=== PATIENT | female | born 1955 | race Hispanic/Latino ===

== ENCOUNTER 2017-10-08 23:05 | Inpatient (IN) | payer OTHER, SELFPAY ==
[2017-10-08] MEDS ORDERED: Atropine Sulfate 1 mg/10 ml Syringe ONE (23:33)
[2017-10-09 00:50] LABS: CKMB 0.8 ng/mL (0-6.6); Troponin I Less than 0.010 ng/mL (< 0.028)
[2017-10-09 01:42] VITALS: BMI 24.7
[2017-10-09 03:37] LABS: Troponin I 0.013 ng/mL (< 0.028)
[2017-10-09] MEDS ORDERED: Senokot 8.6 MG TAB PO PRN (06:45)
[2017-10-09] MEDS ORDERED: Mag-Al 1200 mg/1200 mg/30 ML UDCUP PO PRN (06:45)
[2017-10-09] MEDS ORDERED: Loperamide HCl 2 MG CAP PO PRN (06:45)
[2017-10-09] MEDS ORDERED: Ondansetron HCl/PF 4 MG/2 ML Vial IVP PRN (06:45)
[2017-10-09] MEDS ORDERED: Chloraseptic Spray 180 ml Bottle PO PRN (06:45)
[2017-10-09] MEDS ORDERED: Milk Of Magnesia 30 ML UDCUP PO PRN (06:45)
[2017-10-09] MEDS ORDERED: Artificial Tears 18 DROP/0.9 ML EA EYE PRN (06:45)
[2017-10-09] MEDS ORDERED: Diabetic Tussin 200 MG/10 ML UDCUP PO PRN (06:45)
[2017-10-09] MEDS ORDERED: Nitroglycerin 0.4 MG TAB (25 Tab Bottle) SL PRN (06:45)
[2017-10-09] MEDS ORDERED: Sodium Chloride 0.65% Nasal 44 ML BOT EA NARE PRN (06:45)
[2017-10-09] MEDS ORDERED: Ondansetron ODT 4 MG TAB PO PRN (06:45)
[2017-10-09] MEDS ORDERED: Eucerin (Mineral Oil/Petrolatum,White) 30 gm Jar TOP PRN (06:45)
[2017-10-09] MEDS ORDERED: Loratadine 10 MG TAB PO PRN (06:45)
[2017-10-09] MEDS ORDERED: hydrALAZINE 20 MG/ML VIAL SLOW IVP PRN (06:45)
[2017-10-09] MEDS ORDERED: Zolpidem Tartrate 5 MG TAB PO PRN (06:45)
[2017-10-09 07:16] LABS: Troponin I 0.022 ng/mL (< 0.028)
[2017-10-09 07:18] LABS: #Eosinphils 0.2 thou/uL (0.0-0.7); #Lymphocytes 2.4 thou/uL (1.20-3.40); #Monocytes 0.5 thou/uL (0.11-0.59); #Neutrophils 4.4 thou/uL (1.40-6.50); %Basophils 0.6 % (0.0-1.0); %Eosinophils 3.1 % (0.0-10.0); %Lymphocytes 31.4 % (21.0-51.0); %Monocytes 6.7 % (0.0-10.0); %Neutrophils 58.1 % (42.0-75.0); Mean Corpuscular HGB CONC 31.7 g/dL (32.0-36.0); Mean Corpuscular Hemoglobin 26.1 pg (27.0-31.0); Mean Corpuscular Volume 82.4 fL (78.0-98.0); Mean Platelet Volume 9.4 fL (7.4-10.4); Platelet Count 221 thou/uL (130-400); RBC Distribution Width 13.5 % (11.5-14.5); White Blood Cell (WBC) Count 7.6 thou/uL (4.8-10.8)
[2017-10-09 07:42] LABS: ALT (SGPT) 13 U/L (8-55); AST (SGOT) 16 U/L (5-34); Albumin 3.8 g/dL (3.4-4.8); Alkaline Phosphatase 62 U/L (40-150); Anion Gap 12 mmol/L (10-20); BUN (Urea Nitrogen) 14 mg/dL (9.8-20.1); Bilirubin, Total 0.5 mg/dL (0.2-1.2); Calc. Creatinine Clearance 73 mL/min (70-130); Calcium 8.9 mg/dL (7.8-10.44); Carbon Dioxide 24 mmol/L (23-31); Cardiac Risk 2.8 (Less than 4.5); Chloride 110 mmol/L (98-107); Cholesterol 205 mg/dl (< 200 Desired); Estimated GFR-MDRD 78; Globulin 2.7 g/dL (2.4-3.5); Glucose 101 mg/dL (80-115); HDL Cholesterol 74 mg/dL (>60 Neg Risk); LDL Cholesterol, Calculated 118 mg/dL; Potassium 3.4 mmol/L (3.5-5.1); Protein, Total 6.5 g/dL (6.0-8.3); Sodium 143 mmol/L (136-145); Triglycerides 65 mg/dL (Less than 150)
[2017-10-09] MEDS: Losartan 25 MG TAB PO SCH (08:45)
[2017-10-09] MEDS ORDERED: Potassium Chloride 20 MEQ in Premix Bag 1 BAG IVPB SCH ×2 (08:45→10:15)
[2017-10-09] MEDS: Enoxaparin Sodium 40 MG/0.4 ML SYRINGE SC SCH (08:45)
[2017-10-09] MEDS: traZODone HCl 50 MG TAB PO SCH ×2 (08:46→20:10)
[2017-10-09] MEDS: Famotidine 20 MG TAB PO SCH ×2 (08:46→20:11)
[2017-10-09] MEDS ORDERED: Regadenoson 0.4 MG/5 ML SYRINGE ONE (10:39)
[2017-10-09] MEDS ORDERED: Albuterol Sulfate 2.5 mg/3 ml Neb NEB PRN (10:54)
--- NOTE | 2017-10-09 11:47 | HP ---
PRIMARY CARE PHYSICIAN: Obdulio Almodovar [employer] in [place]. REASON FOR ADMISSION: Dizziness/symptomatic bradycardia. HISTORY OF PRESENT ILLNESS: A 62-year-old female with a history of hypertension and asthma, who initially went to [facility] Emergency Room with a complaint of dizziness. The mai ent reports that she feels intermittently dizzy, which last for seconds and subsides by itself. The patient was experiencing dizziness more frequently yesterday. She had one episode at work, she felt as if she is going to pass out, but she did not completely pass out. She was having headache. Per p atient, she was also having some throbbing pain in her left side of the neck when it started, but she did not notice any change with position or associated palpitations or shortness of breath. She shon es any associated confusion, chest pain, and generalized weakness. Subsequently, patient went to -[facility] where she again felt similar dizziness as if she is going to pass out and that is what she was concerned about and decided to go to local emergency room for evaluatio n. The patient was found with bradycardia and for that reason, the patient was sent to our emergency room for evaluation. When she came to our emergency room, her pulse was running in 44. Otherwise, she was hypertensive. She denies any symptoms relation with position changes. She denies any exertion related dizziness, s hortness of breath, chest pain, palpitation. She is not taking any beta sherry medication. She den ies any UTI symptoms. She denies any constipation, diarrhea, melena or hematochezia. She denies any vasovagal type of reaction. REVIEW OF SYSTEMS: The following complete review of systems was negative, unless otherwise mentioned in the HPI or below: Constitutional: Weight loss or gain, ability to conduct usual activities. Skin: Rash, itching. Eyes: Double vision, pain. ENT/Mouth: Nose bleeding, neck stiffness, pain, tenderness. Cardiovascular: Palpitations, dyspnea on exertion, orthopnea. Respiratory: Shortness of breath, wheezing, cough, hemoptysis, fever or night sweats. Gastrointestinal: Poor appetite, abdominal pain, heartburn, nausea, vomiting, constipation, or diarr hea. Genitourinary: Urgency, frequency, dysuria, nocturia. Musculoskeletal: Pain, swelling. Neurologic/Psychiatric: Anxiety, depression. Allergy/Immunologic: Skin rash, bleeding tendency. Please see my HPI for pertinent positive and negative. All other review of system reviewed and negat sage except as mentioned in the HPI. PAST MEDICAL HISTORY: Hypertension, hypothyroidism, asthma. PAST SURGICAL HISTORY: Hysterectomy, left arm surgery with screws. PAST PSYCHIATRIC HISTORY: Anxiety and depression. SOCIAL HISTORY: Patient is single. She denies any tobacco, alcohol, or illicit drug abuse. FAMILY HISTORY: No strong family history of premature coronary artery disease, stroke or cancer. ALLERGIES: CODEINE SULFATE. CURRENT HOME MEDICATIONS: Hydralazine 50 mg q.8 hourly, Synthroid 88 mcg p.o. daily, Cozaar 50 mg p. o. daily, Singulair 10 mg p.o. daily, Zoloft 100 mg p.o. daily, trazodone 100 mg p.o. at bedtime and 50 mg in the morning. EMERGENCY ROOM COURSE: The patient was given atropine 0.5 mg in our emergency room PHYSICAL EXAMINATION: VITAL SIGNS: On arrival, blood pressure 212/98 subsequently improved to 164/88, pulse 44, respirator y rate 18, temperature 98.4, saturation 96% on room air, weight 61.2 kilograms. GENERAL: Patient is currently alert, awake, no obvious acute distress, bradycardic. HEENT: Head: Normocephalic, atraumatic. Eyes: Pupils round, reactive to light. Extraocular muscl e intact. ENT: Oropharynx within normal limits. Moist mucous membranes. No oral lesion, no pharyn geal erythema, no exudate. NECK: Supple, no JVD, no thyromegaly, no carotid bruit, no jugular venous distention. LUNGS: Clear to auscultation without any rhonchi or rales. CARDIAC: S1 and S2 regular. No murmur, no gallop, rub. ABDOMEN: Soft, bowel sounds present, nontender, nondistended. No organomegaly, no mass, no suprapub ic tenderness. BACK: Unremarkable, no CVA tenderness. EXTREMITIES: Upper extremity passive movement of all joints are normal. Lower extremities: No latrice a. Good peripheral pulsation. SKIN: No skin rash. HEMATOLOGIC: No lymphadenopathy. PSYCHIATRIC: Normal affect. NEUROLOGIC: Patient is currently alert, oriented x3. Cranial nerves II-XII intact. Motor and sensa tion within normal limits. No cerebellar sign. Plantar bilateral flexor. PSYCHIATRIC: Normal affect. IMAGING DATA: EKG showing sinus bradycardia, premature atrial complexes. The patient had CT soft ti ssue neck that was normal. CT brain was done at [place] [facility], which was also normal. Ches t x-ray is also done at [facility], which is also normal without any acute proc ess. SIGNIFICANT LABORATORY DATA: Blood tests done at [facility] also reviewed as well as we ordered a blood test here in our hospital too. CBC: WBC 8.5, hemoglobin 12.6, platelet 293. BMP: Sodium 142, potassium 3.5, chloride 108, carbon dioxide 24, calcium 9.2, creatinine 0.88, alkaline p hosphatase 68, AST 11, ALT 8, protein 7.3, albumin 4.3, lipase 13. Troponin negative. INR 1.0. In our emergency room, blood tests done. CBC normal. BMP normal other than hypokalemia. Potassium 3.4 and LFT normal. Cardiac enzymes already negative x3 and TSH 4.99, LDL 118. ASSESSMENT AND PLAN: 1. Dizziness, near syncope, likely related with symptomatic bradycardia. The patient has paroxysmal symptoms, it has no relation with position, so does not suspect any benign positional vertigo, does not suspect any vasovagal syncope. Currently her presentation with bradycardia can be explained toge ther. At this point, Cardiology consulted. Cardiology will decide about any further investigation a nd evaluate for pacemaker. We will obtain echocardiography to assess ejection fraction and other str uctural abnormality. TSH checked and it is reasonably well controlled, but we will need to increase the Synthroid 200 mcg p.o. daily to better control hypothyroidism. 2. Hypokalemia. Potassium will be given IV one time dose and we will repeat BMP tomorrow. 3. Hypertension with hypertensive urgency. We will continue Cozaar 50 mg p.o. daily, hydralazine 50 mg q.8 hourly. We will avoid any beta blockers because of her low pulse rate. 4. Asthma. We will continue Singulair 10 mg p.o. daily. We will use albuterol nebulization p.r.n. basis. 5. Anxiety and depression. We will continue Zoloft 100 mg p.o. daily and trazodone 150 mg in the mo rning and 100 mg at bedtime. 6. Deep venous thrombosis prophylaxis, Lovenox 40 mg subcu daily. 7. Gastrointestinal prophylaxis, Pepcid 20 mg p.o. b.i.d. 8. Code status: The patient is FULL CODE. Patient does not have any surrogate decision maker. She is making her decision by herself. Disposition plan based on clinical course, likely 24-48 hours depending upon clinical course, she may need more if her pulse does not improve.
--- NOTE | 2017-10-09 14:04 | CON ---
DATE OF CONSULTATION: 10/09/2017. REASON FOR CONSULTATION: Bradycardia, dizziness, lightheadedness, near syncope. HISTORY OF PRESENT ILLNESS: Ms. Faye Levy is a very pleasant 62-year-old woman. The patient w as shopping yesterday when she began to feel extremely lightheaded that came on suddenly. She had to sit down quickly. She later had a recurrence of the same symptoms. She did not faint, but felt lik e she was coming close. She did not have chest pain or pressure. She has been brought here. She was found to have severe br adycardia. PAST MEDICAL HISTORY: Negative for any cardiac problems. She did come to the emergency room a coupl e of years ago, apparently with some palpitations, but no significant findings at that time. Otherwise, she has been relatively active and healthy. PAST MEDICAL HISTORY: Hypertension. MEDICATIONS: The outpatient medicines which are listed were hydralazine and levothyroxine. The patient was hypertensive initially. Her initial blood pressure was also recorded as very high . The pulse is 44 at that time. FAMILY HISTORY: Negative for heart disease at a young age. SOCIAL HISTORY: No alcohol or tobacco abuse. REVIEW OF SYSTEMS: Constitutional: No significant weight gain or loss. Vision: No changes. Heari ng: No changes. Pulmonary: No cough or wheezing. Gastrointestinal: No nausea, vomiting, diarrhea . Neurologic: No unilateral weakness or numbness. Psychiatric: No unusual depression or anxiety. Hematologic: No unusual bruising. Skin: No unusua l bruising. No rashes. PHYSICAL EXAMINATION: GENERAL: This is a pleasant 62-year-old woman, looks younger than chronologic age. VITAL SIGNS: Blood pressure now is improved to 151/78, pulse 42. Earlier, the blood pressure was ex tremely high over 200 systolic. HEENT: Eyes, sclerae nonicteric. Mouth mucous membranes moist. NECK: Supple, no lymphadenopathy. LUNGS: Clear, no wheezing, rales or rhonchi. CARDIAC: Normal S1, normal S2. There is no murmur, rub or gallop. ABDOMEN: Soft, nontender, no hepatosplenomegaly. EXTREMITIES: Warm, dry, no clubbing or cyanosis. There is no edema. HEMATOLOGIC: No unusual bruising. PSYCHIATRIC: Mood and affect normal. SKIN: Warm and dry. PERTINENT LABORATORY DATA: Potassium is 3.4. TSH is 4.9966. Cholesterol is 205. LDL is 118. IMAGING: Echocardiogram is being done now. EKG showed marked sinus bradycardia at rate of 46 with s ome premature atrial contractions. There showed her heart rates of as low as 39 at 7 a.m. this morni ng. ASSESSMENT: 1. Symptomatic sinus bradycardia. 2. History of hypertension. 3. History of hypothyroidism. TSH is just borderline high. PLAN: 1. We would go ahead and increase the thyroid dose to 100 mcg. 2. I will review echocardiogram. 3. Stress testing to look for any evidence of ischemia. 4. If no evidence of any ischemia and echo was within normal limits, we will likely need pacemaker i nsertion. Discussed risks including bleeding, infection, .
--- NOTE | 2017-10-09 15:32 | NM ---
MYOCARDIAL PERFUSION EVALUATION 10/09/17 Lexiscan stress test protocol. HISTORY: Sinus bradycardia. RADIOPHARMACEUTICAL: 29.5 millicuries technetium 99m Sestamibi IV with stress and 9.1 millicuries technetium 99m Sestamibi with rest. FINDINGS: No reversible myocardial perfusion defect is evident when comparing the rest and stress images. There is normal wall motion and thickening. Estimated LVEF is 89%. IMPRESSION: No scintigraphic evidence of reversible myocardial ischemia. POS: MYRON
[2017-10-09 17:00] LABS: Bilirubin Negative (Negative); Blood, Urine Negative (Negative); Clarity CLEAR (Clear); Glucose, Urine (Dipstick) Negative (Negative); Leukocyte Trace (Negative); Nitrite Negative (Negative); Protein, Urine (Dipstick) Negative (Neg-Trace); Specific Gravity, Urine 1.009 (1.002-1.036); Urobilinogen 0.2 mg/dL (0.2-1.0)
[2017-10-09 17:04] LABS: Bacteria/HPF None Seen HPF (None Seen); Hyaline Casts/LPF 0-3 HYALINE CAST LPF (0-3 Hyaline); RBC/HPF 0-3 HPF (0-3); Squamous Epithelial None Seen HPF (0-3); WBC/HPF None Seen HPF (0-3)
[2017-10-09] MEDS: Montelukast Sodium 10 mg Tablet PO SCH (20:10)
[2017-10-10] MEDS: Levothyroxine Sodium 100 MCG TAB PO SCH (05:08)
[2017-10-10] MEDS ORDERED: Levothyroxine Sodium 88 MCG TAB PO SCH (06:00)
--- NOTE | 2017-10-10 07:37 | PDOC.PN ---
- Subjective Encounter Start Date: 10/11/17 Encounter Start Time: 07:30 Patient seen and examined. No new complaints. No overnight events - Objective Resuscitation Status: Resuscitation Status FULL:Full Resuscitation MAR Reviewed: Yes Vital Signs & Weight: Vital Signs (12 hours) Temp Pulse Resp BP BP Pulse Ox 10/10/17 03:43 98.3 F 53 L 15 165/78 H 95 10/09/17 23:19 98.2 F 53 L 15 160/71 H 95 10/09/17 20:00 97.7 F 51 L 18 128/70 95 Weight Weight 139 lb I&O: 10/09/17 10/10/17 10/11/17 06:59 06:59 06:59 Intake Total 120 480 Output Total 400 Balance -280 480 Result Diagrams: 10/09/17 06:09 10/11/17 03:50 EKG Reviewed by me: Yes (sinus bradycardia) Phys Exam - Physical Examination Constitutional: NAD HEENT: PERRLA, moist MMs, sclera anicteric Neck: no JVD, supple Respiratory: no wheezing, no rales, no rhonchi Cardiovascular: RRR, no significant murmur, no rub Gastrointestinal: soft, non-tender, no distention, positive bowel sounds Musculoskeletal: no edema, pulses present Neurological: non-focal, normal sensation, moves all 4 limbs Psychiatric: normal affect, A&O x 3 Skin: no rash, normal turgor Dx/Plan (1) Dizziness Code(s): R42 - DIZZINESS AND GIDDINESS Status: Acute (2) Hypokalemia Code(s): E87.6 - HYPOKALEMIA Status: Acute (3) Symptomatic sinus bradycardia Code(s): R00.1 - BRADYCARDIA, UNSPECIFIED Status: Acute (4) Asthma Code(s): J45.909 - UNSPECIFIED ASTHMA, UNCOMPLICATED Status: Chronic (5) Hypertension Code(s): I10 - ESSENTIAL (PRIMARY) HYPERTENSION Status: Chronic (6) Hypothyroidism Code(s): E03.9 - HYPOTHYROIDISM, UNSPECIFIED Status: Chronic - Plan cont current plan of care * plan for pacemaker on wednesday * medication reviewed as below * symptomatic treatment * discussed with family * answered all question about pacemaker. * BP meds losartan increased * syntrhoid increased Review of Systems - Review of Systems Constitutional: negative: fever, chills, sweats, weakness, malaise, other ENT: negative: Ear Pain, Ear Discharge, Nose Pain, Nose Discharge, Nose Congestion, Mouth Pain, Mouth Swelling, Throat Pain, Throat Swelling, Other Respiratory: negative: Cough, Dry, Shortness of Breath, Hemoptysis, SOB with Excertion, Pleuritic Pain, Sputum, Wheezing Cardiovascular: negative: chest pain, palpitations, orthopnea, paroxysmal nocturnal dyspnea, edema, light headedness, other Gastrointestinal: negative: Nausea, Vomiting, Abdominal Pain, Diarrhea, Constipation, Melena, Hematochezia, Other Genitourinary: negative: Dysuria, Frequency, Incontinence, Hematuria, Retention , Other Musculoskeletal: negative: Neck Pain, Shoulder Pain, Arm Pain, Back Pain, Hand Pain, Leg Pain, Foot Pain, Other Skin: negative: Rash, Lesions, Simon, Bruising, Other - Medications/Allergies Allergies/Adverse Reactions: Allergies Allergy/AdvReac Type Severity Reaction Status Date / Time codeine Allergy Verified 10/09/17 02:29 Medications: Current Medications Acetaminophen (Tylenol) 650 mg PO Q4H PRN PRN Reason: Headache/Fever or Pain Al Hydroxide/Mg Hydroxide (Maalox) 30 ml PO Q6H PRN PRN Reason: Heartburn or Indigestion Albuterol Sulfate (Ventolin) 2.5 mg NEB [id number] PRN PRN Reason: Wheezing Artificial Tears (Tears Naturale) 0 drop EA EYE PRN PRN PRN Reason: Dry Eyes Enoxaparin Sodium (Lovenox) 40 mg SC 0900 [facility] Last Admin: 10/09/17 08:45 Dose: 40 mg Famotidine (Pepcid) 20 mg PO BID [facility] Last Admin: 10/09/17 20:11 Dose: 20 mg Guaifenesin (Robitussin Sf) 200 mg PO Q4H PRN PRN Reason: Cough Hydralazine HCl (Apresoline) 10 mg SLOW IVP Q4H PRN PRN Reason: Systolic BP > 180 Levothyroxine Sodium (Synthroid) 100 mcg PO 0600 [facility] Last Admin: 10/10/17 05:08 Dose: 100 mcg Loperamide HCl (Imodium) 2 mg PO PRN PRN PRN Reason: Diarrhea/Loose Stools Loratadine (Claritin) 10 mg PO DAILYPRN PRN PRN Reason: Sinus Symptoms Losartan Potassium (Cozaar) 50 mg PO DAILY [facility] Last Admin: 10/09/17 08:45 Dose: 50 mg Magnesium Hydroxide (Milk Of Magnesium) 30 ml PO DAILYPRN PRN PRN Reason: Constipation Mineral Oil/White Petrolatum (Eucerin Cream) 0 gm TOP BIDPRN PRN PRN Reason: Dry Skin Montelukast Sodium (Singulair) 10 mg PO [facility] Last Admin: 10/09/17 20:10 Dose: 10 mg Nitroglycerin (Nitrostat) 0.4 mg SL Q5MIN PRN PRN Reason: Chest Pain Ondansetron HCl (Zofran Odt) 4 mg PO Q6H PRN PRN Reason: Nausea/Vomiting Ondansetron HCl (Zofran) 4 mg IVP Q6H PRN PRN Reason: Nausea/Vomiting Phenol (Chloraseptic [place] 180 Ml Bot) 0 ml PO PRN PRN PRN Reason: Sore Throat Senna (Senokot) 2 tab PO HSPRN PRN PRN Reason: Constipation Sertraline HCl (Zoloft) 100 mg PO DAILY [facility] Last Admin: 10/09/17 08:46 Dose: 100 mg Sodium Chloride (Rachel Nasal [place] 0.65%) 0 ml EA NARE QIDPRN PRN PRN Reason: Nasal Congestion Trazodone HCl (Desyrel) 50 mg PO [facility] Last Admin: 10/09/17 08:46 Dose: 50 mg Trazodone HCl (Desyrel) 100 mg PO [facility] Last Admin: 10/09/17 20:10 Dose: 100 mg Zolpidem Tartrate (Ambien) 5 mg PO HSPRN PRN PRN Reason: Insomnia
[2017-10-10] MEDS: Losartan 25 MG TAB PO SCH (08:37)
[2017-10-10] MEDS: traZODone HCl 50 MG TAB PO SCH ×2 (08:41→21:44)
[2017-10-10] MEDS: Enoxaparin Sodium 40 MG/0.4 ML SYRINGE SC SCH (08:41)
[2017-10-10] MEDS: Famotidine 20 MG TAB PO SCH ×2 (08:41→21:45)
--- NOTE | 2017-10-10 09:10 | PDOC.CTH ---
Cardiology Progress Note - Subjective Resting, awakens easily. Feels good, did not get much sleep last night. Denies chest pain, lightheadedness/dizziness, or shortness of breath. No overnight cardiac events, surveillance system monitor shows persistent bradycardia, HR as low as 39. No recurrence of syncope. - Objective Vital Signs Temp Pulse Resp BP BP Pulse Ox 10/10/17 07:55 98.3 F 41 L 16 170/82 H 97 10/10/17 03:43 98.3 F 53 L 15 165/78 H 95 10/09/17 23:19 98.2 F 53 L 15 160/71 H 95 Weight 139 lb 10/09/17 10/10/17 10/11/17 06:59 06:59 06:59 Intake Total 120 480 Output Total 400 Balance -280 480 - Physical Examination General/Neuro: alert & oriented x3, NAD Neck: no JVD present Lungs: CTA, unlabored respirations Heart: RRR, other: (markedly bradycardic) Abdomen: NT/ND, soft - Telemetry Telemetry Rhythm: SB BBB - Labs Result Diagrams: 10/09/17 06:09 10/09/17 06:09 Troponin/CKMB CK-MB (CK-2) 0.8 ng/mL (0-6.6) 10/08/17 23:58 Troponin I 0.022 ng/mL (< 0.028) 10/09/17 06:09 - Assessment/Plan 1.Symptomatic Bradycardia-stable, no recurrence of syncope. Echocardiogram normal, EF 55%-60%. Lexiscan normal, no evidence of ischemia. Probable PM insertion tomorrow. 2.Essential HTN-remains elevated, increase losartan to 100mg daily. 3.Hypothyroidism-borderline high, adjust levothyroxine.
--- NOTE | 2017-10-10 09:41 | PDOC.PN ---
- Subjective Encounter Start Date: 10/10/17 Encounter Start Time: 07:20 -: old records requested/rev Patient seen and examined. No new complaints. No overnight events - Objective Resuscitation Status: Resuscitation Status FULL:Full Resuscitation MAR Reviewed: Yes Vital Signs & Weight: Vital Signs (12 hours) Temp Pulse Resp BP BP Pulse Ox 10/10/17 07:55 98.3 F 41 L 16 170/82 H 97 10/10/17 03:43 98.3 F 53 L 15 165/78 H 95 10/09/17 23:19 98.2 F 53 L 15 160/71 H 95 Weight Weight 139 lb I&O: 10/09/17 10/10/17 10/11/17 06:59 06:59 06:59 Intake Total 120 480 Output Total 400 Balance -280 480 Result Diagrams: 10/09/17 06:09 10/09/17 06:09 Radiology Reviewed by me: Yes (stress test normal, echo normal ef) EKG Reviewed by me: Yes (sinus bradycardia) Phys Exam - Physical Examination Constitutional: NAD HEENT: PERRLA, moist MMs, sclera anicteric Neck: no JVD, supple Respiratory: no wheezing, no rales, no rhonchi Cardiovascular: RRR, no significant murmur, no rub Gastrointestinal: soft, non-tender, no distention, positive bowel sounds Musculoskeletal: no edema, pulses present Neurological: non-focal, normal sensation, moves all 4 limbs Lymphatic: no nodes Psychiatric: normal affect, A&O x 3 Skin: no rash, normal turgor Dx/Plan (1) Dizziness Code(s): R42 - DIZZINESS AND GIDDINESS Status: Acute (2) Hypokalemia Code(s): E87.6 - HYPOKALEMIA Status: Acute (3) Symptomatic sinus bradycardia Code(s): R00.1 - BRADYCARDIA, UNSPECIFIED Status: Acute (4) Asthma Code(s): J45.909 - UNSPECIFIED ASTHMA, UNCOMPLICATED Status: Chronic (5) Hypertension Code(s): I10 - ESSENTIAL (PRIMARY) HYPERTENSION Status: Chronic (6) Hypothyroidism Code(s): E03.9 - HYPOTHYROIDISM, UNSPECIFIED Status: Chronic - Plan cont current plan of care * losartan increased to 100 mg po today * stress test is normal, ehco is also normal EF * pacemaker will defer to cardiology * medication reviewed as below * symptomatic treatment. Review of Systems - Review of Systems Eyes: negative: Pain, Vision Change, Conjunctivae Inflammation, Eyelid Inflammation, Redness, Other ENT: negative: Ear Pain, Ear Discharge, Nose Pain, Nose Discharge, Nose Congestion, Mouth Pain, Mouth Swelling, Throat Pain, Throat Swelling, Other Respiratory: negative: Cough, Dry, Shortness of Breath, Hemoptysis, SOB with Excertion, Pleuritic Pain, Sputum, Wheezing Cardiovascular: negative: chest pain, palpitations, orthopnea, paroxysmal nocturnal dyspnea, edema, light headedness, other Gastrointestinal: negative: Nausea, Vomiting, Abdominal Pain, Diarrhea, Constipation, Melena, Hematochezia, Other Genitourinary: negative: Dysuria, Frequency, Incontinence, Hematuria, Retention , Other Musculoskeletal: negative: Neck Pain, Shoulder Pain, Arm Pain, Back Pain, Hand Pain, Leg Pain, Foot Pain, Other Skin: negative: Rash, Lesions, Simon, Bruising, Other - Medications/Allergies Allergies/Adverse Reactions: Allergies Allergy/AdvReac Type Severity Reaction Status Date / Time codeine Allergy Verified 10/09/17 02:29 Medications: Current Medications Acetaminophen (Tylenol) 650 mg PO Q4H PRN PRN Reason: Headache/Fever or Pain Al Hydroxide/Mg Hydroxide (Maalox) 30 ml PO Q6H PRN PRN Reason: Heartburn or Indigestion Albuterol Sulfate (Ventolin) 2.5 mg NEB [id number] PRN PRN Reason: Wheezing Artificial Tears (Tears Naturale) 0 drop EA EYE PRN PRN PRN Reason: Dry Eyes Enoxaparin Sodium (Lovenox) 40 mg SC 0900 [facility] Last Admin: 10/10/17 08:41 Dose: 40 mg Famotidine (Pepcid) 20 mg PO BID [facility] Last Admin: 10/10/17 08:41 Dose: 20 mg Guaifenesin (Robitussin Sf) 200 mg PO Q4H PRN PRN Reason: Cough Hydralazine HCl (Apresoline) 10 mg SLOW IVP Q4H PRN PRN Reason: Systolic BP > 180 Levothyroxine Sodium (Synthroid) 100 mcg PO 0600 [facility] Last Admin: 10/10/17 05:08 Dose: 100 mcg Loperamide HCl (Imodium) 2 mg PO PRN PRN PRN Reason: Diarrhea/Loose Stools Loratadine (Claritin) 10 mg PO DAILYPRN PRN PRN Reason: Sinus Symptoms Losartan Potassium (Cozaar) 50 mg PO DAILY [facility] Last Admin: 10/10/17 08:37 Dose: 50 mg Losartan Potassium (Cozaar) 100 mg PO DAILY [facility] Magnesium Hydroxide (Milk Of Magnesium) 30 ml PO DAILYPRN PRN PRN Reason: Constipation Mineral Oil/White Petrolatum (Eucerin Cream) 0 gm TOP BIDPRN PRN PRN Reason: Dry Skin Montelukast Sodium (Singulair) 10 mg PO [facility] Last Admin: 10/09/17 20:10 Dose: 10 mg Nitroglycerin (Nitrostat) 0.4 mg SL Q5MIN PRN PRN Reason: Chest Pain Ondansetron HCl (Zofran Odt) 4 mg PO Q6H PRN PRN Reason: Nausea/Vomiting Ondansetron HCl (Zofran) 4 mg IVP Q6H PRN PRN Reason: Nausea/Vomiting Phenol (Chloraseptic [place] 180 Ml Bot) 0 ml PO PRN PRN PRN Reason: Sore Throat Senna (Senokot) 2 tab PO HSPRN PRN PRN Reason: Constipation Sertraline HCl (Zoloft) 100 mg PO DAILY [facility] Last Admin: 10/10/17 08:40 Dose: 100 mg Sodium Chloride ([place] Nasal [place] 0.65%) 0 ml EA NARE QIDPRN PRN PRN Reason: Nasal Congestion Trazodone HCl (Desyrel) 50 mg PO [facility] Last Admin: 10/10/17 08:41 Dose: 50 mg Trazodone HCl (Desyrel) 100 mg PO [facility] Last Admin: 10/09/17 20:10 Dose: 100 mg Zolpidem Tartrate (Ambien) 5 mg PO HSPRN PRN PRN Reason: Insomnia
--- NOTE | 2017-10-10 15:34 | PRG ---
CARDIOLOGY FOLLOWUP DATE OF SERVICE: 10/10/2017 SUBJECTIVE: Ms. Levy is doing well, no complaints. She feels fine at rest. She is still havin g heart rates in the 30s at times. No chest pain or pressure. PHYSICAL EXAMINATION: VITAL SIGNS: Blood pressure 167/77, pulse 43. LUNGS: Clear. CARDIAC: Normal S1, normal S2. ASSESSMENT: 1. Symptomatic bradycardia. 2. Stress test and echo showed no significant heart disease other than the electrical system disease as outlined above. Laboratory revealed that the TSH was slightly elevated at 4.99, normal being up to 4.94 indicating sh e is likely mildly hypothyroid, but she recently was hyperthyroid and the dose was just cut back slig htly. At this time, we would recommend to proceed to cardiac catheterization lab to have pacemaker i nserted. Discussed risks of bleeding, infection, air around the lung, lead for lead repositioning. The patient understands and wished to proceed. Dr. Childress will proceed with this tomorrow.
[2017-10-10] MEDS ORDERED: CEFAZOLIN 1 GM in Sodium Chloride 0.9% 100 ML IVPB SCH (15:45)
[2017-10-10] MEDS: Montelukast Sodium 10 mg Tablet PO SCH (21:44)
[2017-10-11 04:58] LABS: Anion Gap 12 mmol/L (10-20); BUN (Urea Nitrogen) 13 mg/dL (9.8-20.1); Calc. Creatinine Clearance 81 mL/min (70-130); Carbon Dioxide 25 mmol/L (23-31); Chloride 109 mmol/L (98-107); Estimated GFR-MDRD 84; Glucose 90 mg/dL (80-115); Potassium 3.5 mmol/L (3.5-5.1); Sodium 142 mmol/L (136-145)
[2017-10-11] MEDS: Levothyroxine Sodium 100 MCG TAB PO SCH ×2 (07:10→08:12)
[2017-10-11] MEDS: Enoxaparin Sodium 40 MG/0.4 ML SYRINGE SC SCH (08:13)
[2017-10-11] MEDS: Famotidine 20 MG TAB PO SCH ×2 (08:13→20:24)
[2017-10-11] MEDS: Losartan 25 MG TAB PO SCH (08:13)
[2017-10-11] MEDS: traZODone HCl 50 MG TAB PO SCH ×2 (08:13→20:24)
[2017-10-11] MEDS: Acetaminophen 325 MG TAB PO PRN ×2 (08:15→17:35)
--- NOTE | 2017-10-11 11:00 | PDOC.PN ---
- Subjective Encounter Start Date: 10/11/17 Encounter Start Time: 08:10 Patient seen and examined. No new complaints. No overnight events on monitor her lowest heart rate is 36 - Objective Resuscitation Status: Resuscitation Status FULL:Full Resuscitation MAR Reviewed: Yes Vital Signs & Weight: Vital Signs (12 hours) Temp Pulse Resp BP BP Pulse Ox 10/11/17 09:30 165/81 H 10/11/17 08:09 99.4 F 54 L 180/79 H 96 10/11/17 03:34 98.6 F 75 14 162/78 H 96 10/10/17 23:44 98.7 F 64 14 155/68 H 95 Weight Weight 216 lb I&O: 10/10/17 10/11/17 10/12/17 06:59 06:59 06:59 Intake Total 480 1200 Balance 480 1200 Result Diagrams: 10/09/17 06:09 10/11/17 03:50 EKG Reviewed by me: Yes (sinus bradycardia) Phys Exam - Physical Examination Constitutional: NAD HEENT: PERRLA, moist MMs, sclera anicteric Neck: no JVD, supple Respiratory: no wheezing, no rales, no rhonchi Cardiovascular: RRR, no significant murmur, no rub Gastrointestinal: soft, non-tender, no distention, positive bowel sounds Musculoskeletal: no edema, pulses present Neurological: non-focal, normal sensation, moves all 4 limbs Lymphatic: no nodes Psychiatric: normal affect, A&O x 3 Skin: no rash, normal turgor Dx/Plan (1) Dizziness Code(s): R42 - DIZZINESS AND GIDDINESS Status: Acute (2) Hypokalemia Code(s): E87.6 - HYPOKALEMIA Status: Acute (3) Symptomatic sinus bradycardia Code(s): R00.1 - BRADYCARDIA, UNSPECIFIED Status: Acute (4) Asthma Code(s): J45.909 - UNSPECIFIED ASTHMA, UNCOMPLICATED Status: Chronic (5) Hypertension Code(s): I10 - ESSENTIAL (PRIMARY) HYPERTENSION Status: Chronic (6) Hypothyroidism Code(s): E03.9 - HYPOTHYROIDISM, UNSPECIFIED Status: Chronic - Plan cont current plan of care * medication reviewed as below * symptomatic treatment * today pacemkaer * tomorrow possible discharge. Review of Systems - Review of Systems Eyes: negative: Pain, Vision Change, Conjunctivae Inflammation, Eyelid Inflammation, Redness, Other ENT: negative: Ear Pain, Ear Discharge, Nose Pain, Nose Discharge, Nose Congestion, Mouth Pain, Mouth Swelling, Throat Pain, Throat Swelling, Other Respiratory: negative: Cough, Dry, Shortness of Breath, Hemoptysis, SOB with Excertion, Pleuritic Pain, Sputum, Wheezing Cardiovascular: negative: chest pain, palpitations, orthopnea, paroxysmal nocturnal dyspnea, edema, light headedness, other Gastrointestinal: negative: Nausea, Vomiting, Abdominal Pain, Diarrhea, Constipation, Melena, Hematochezia, Other Genitourinary: negative: Dysuria, Frequency, Incontinence, Hematuria, Retention , Other Musculoskeletal: negative: Neck Pain, Shoulder Pain, Arm Pain, Back Pain, Hand Pain, Leg Pain, Foot Pain, Other Skin: negative: Rash, Lesions, Simon, Bruising, Other - Medications/Allergies Allergies/Adverse Reactions: Allergies Allergy/AdvReac Type Severity Reaction Status Date / Time codeine Allergy Verified 10/09/17 02:29 Medications: Current Medications Acetaminophen (Tylenol) 650 mg PO Q4H PRN PRN Reason: Headache/Fever or Pain Last Admin: 10/11/17 08:15 Dose: 650 mg Al Hydroxide/Mg Hydroxide (Maalox) 30 ml PO Q6H PRN PRN Reason: Heartburn or Indigestion Albuterol Sulfate (Ventolin) 2.5 mg NEB [id number] PRN PRN Reason: Wheezing Artificial Tears (Tears Naturale) 0 drop EA EYE PRN PRN PRN Reason: Dry Eyes Enoxaparin Sodium (Lovenox) 40 mg SC 0900 [facility] Last Admin: 10/11/17 08:13 Dose: Not Given Famotidine (Pepcid) 20 mg PO BID [facility] Last Admin: 10/11/17 08:13 Dose: Not Given Guaifenesin (Robitussin Sf) 200 mg PO Q4H PRN PRN Reason: Cough Hydralazine HCl (Apresoline) 10 mg SLOW IVP Q4H PRN PRN Reason: Systolic BP > 180 Last Admin: 10/10/17 21:48 Dose: 10 mg Cefazolin Sodium 1 gm/ Sodium (Chloride) 100 mls @ 200 mls/hr IVPB WILLCALL [facility] Stop: 10/11/17 15:46 Levothyroxine Sodium (Synthroid) 100 mcg PO 0600 [facility] Last Admin: 10/11/17 08:12 Dose: 100 mcg Loperamide HCl (Imodium) 2 mg PO PRN PRN PRN Reason: Diarrhea/Loose Stools Loratadine (Claritin) 10 mg PO DAILYPRN PRN PRN Reason: Sinus Symptoms Losartan Potassium (Cozaar) 100 mg PO DAILY [facility] Last Admin: 10/11/17 08:13 Dose: 100 mg Magnesium Hydroxide (Milk Of Magnesium) 30 ml PO DAILYPRN PRN PRN Reason: Constipation Mineral Oil/White Petrolatum (Eucerin Cream) 0 gm TOP BIDPRN PRN PRN Reason: Dry Skin Montelukast Sodium (Singulair) 10 mg PO [facility] Last Admin: 10/10/17 21:44 Dose: 10 mg Nitroglycerin (Nitrostat) 0.4 mg SL Q5MIN PRN PRN Reason: Chest Pain Ondansetron HCl (Zofran Odt) 4 mg PO Q6H PRN PRN Reason: Nausea/Vomiting Ondansetron HCl (Zofran) 4 mg IVP Q6H PRN PRN Reason: Nausea/Vomiting Phenol (Chloraseptic [place] 180 Ml Bot) 0 ml PO PRN PRN PRN Reason: Sore Throat Senna (Senokot) 2 tab PO HSPRN PRN PRN Reason: Constipation Sertraline HCl (Zoloft) 100 mg PO DAILY [facility] Last Admin: 10/11/17 08:13 Dose: 100 mg Sodium Chloride ([place] Nasal [place] 0.65%) 0 ml EA NARE QIDPRN PRN PRN Reason: Nasal Congestion Trazodone [facility] (Desyrel) [facility] Last Admin: 10/11/17 08:13 Dose: 50 mg Trazodone HCl (Desyrel) 100 mg PO HS [facility] Last Admin: 10/10/17 21:44 Dose: 100 mg Zolpidem Tartrate (Ambien) 5 mg PO HSPRN PRN PRN Reason: Insomnia
[2017-10-11] MEDS ORDERED: CEFAZOLIN 1 GM VIAL ONE (16:16)
[2017-10-11] MEDS ORDERED: Gentamicin 80 MG/2 ML VIAL ONE (16:16)
[2017-10-11] MEDS ORDERED: Midazolam HCl 2 mg/2 ml Vial ONE (16:26)
[2017-10-11] MEDS ORDERED: hydrALAZINE 20 MG/ML VIAL ONE (16:26)
[2017-10-11] MEDS ORDERED: Lidocaine 1% (PF) 30 ML VIAL ONE (16:32)
[2017-10-11] MEDS ORDERED: Sodium Chloride 0.9% 10 ML ONE (19:08)
[2017-10-11] MEDS: traMADol HCl 50 MG TAB PO PRN (19:53)
[2017-10-11] MEDS: Montelukast Sodium 10 mg Tablet PO SCH (20:24)
--- NOTE | 2017-10-11 20:26 | RAD ---
ONE VIEW CHEST: HISTORY: Status post cardiac device placement. FINDINGS: Left-sided transvenous pacemaker with lead positioned over the region of the right atrium and right v entricle. Normal cardiac silhouette. Lungs and pleural spaces are clear. No consolidation. No pne umothorax or osseous abnormalities. IMPRESSION: No acute cardiopulmonary process. POS: [facility]
--- NOTE | 2017-10-11 21:10 | DIS ---
DATE OF ADMISSION: 10/09/2017 DATE OF DISCHARGE: 10/12/2017 DISCHARGE DISPOSITION: Home. PRIMARY DISCHARGE DIAGNOSES: Near syncope/dizziness due to symptomatic sinus bradycardia, hypokalemi a, corrected, status post cardiac pacemaker procedure. SECONDARY DISCHARGE DIAGNOSES: Asthma, hypertension, hypothyroidism, obesity with BMI 39. PRIMARY PROCEDURE/OPERATION: Pacemaker insertion. RADIOLOGICAL INVESTIGATION: Stress test was negative for any ischemia. Echocardiography was normal. SIGNIFICANT LABORATORIES: WBC 7.6, hemoglobin 12.0, platelet 221. Sodium 142, potassium 3.5, BUN 13 , creatinine 0.70, calcium 9.0. LFT normal. Cardiac enzymes negative x3. LDL 118. TSH 4.99. DISCHARGE MEDICATIONS: Synthroid 100 mcg p.o. daily, losartan 100 mg p.o. daily, Singulair 10 mg p.o . daily, Zoloft 100 mg p.o. daily, hydralazine 50 mg q.8 hourly, trazodone 100 mg p.o. at bedtime and 50 mg in the morning. CONTRAINDICATIONS: None. CODE STATUS: FULL CODE. INPATIENT CONSULTANTS: Dr. Silva was following while in hospital. Dr. Childress did a pacemaker procedu re. TEST RESULTS PENDING ON DISCHARGE: None. ALLERGIES: CODEINE. DISCHARGE PLAN: Post hospital, the patient will follow up with primary care physician, Dr. Childress as i nstructed. HOSPITAL COURSE: A 62-year-old female who was admitted by me on 10/09/2017. Please see my HPI for f urther details. This patient was having dizziness and a couple of times syncopal episode. She was a lso experiencing dizziness in past, her heart rate was very low. The patient was initially evaluated at [facility] Room and subsequently she was sent to our hospital for treatmen t and evaluation of symptomatic bradycardia. The patient was hemodynamically stable. We admitted to telemetry floor. We consulted Cardiology. I nitially, this patient stayed in IMCU overnight, but subsequently as the patient remained stable, we transferred to telemetry floor. During hospital course, conveyor monitor was showing sinus bradycardia with lowest heart rate was in 36. Patient was qualifying for pacemaker insertion. Cardiology did a stress test that was normal. Echocardiography was also normal. The patient agreed with the pacemaker insertion and that is why Dr. Childress did pacemaker procedure. He r potassium was also replaced. During this admission, her TSH was high and that is why we increased her levothyroxine from 88 mcg to 100 mcg. During this admission, the patient's blood pressure was al so very high and that is why we increased her losartan to 50-100 mg p.o. daily. Rest of medication w as continued as per previous. The patient is doing very well post-procedure. The patient is seen and examined at bedside. The patient is medically stable for discharge today.
--- NOTE | 2017-10-11 21:11 | RAD ---
CHEST ONE VIEW: HISTORY: Status post pacemaker placement. COMPARISON: 10/11/2017 at 5:58 p.m. FINDINGS: A portable upright chest demonstrates a left-sided transvenous pacemaker, unchanged in position. Sta ble aeration of the lung parenchyma. No pneumothorax. Stable configuration of the cardiac silhouett e. IMPRESSION: No significant interval change. POS: [facility]
[2017-10-12] MEDS: Levothyroxine Sodium 100 MCG TAB PO SCH (05:52)
[2017-10-12] MEDS: traMADol HCl 50 MG TAB PO PRN (08:40)
[2017-10-12] MEDS: Losartan 25 MG TAB PO SCH (08:42)
[2017-10-12] MEDS: Famotidine 20 MG TAB PO SCH ×2 (08:42→20:53)
[2017-10-12] MEDS: traZODone HCl 50 MG TAB PO SCH ×2 (08:43→20:53)
--- NOTE | 2017-10-12 08:59 | PDOC.PN ---
- Subjective Encounter Start Date: 10/12/17 Encounter Start Time: 07:00 Patient seen and examined. No new complaints. No overnight events - Objective Resuscitation Status: Resuscitation Status FULL:Full Resuscitation MAR Reviewed: Yes Vital Signs & Weight: Vital Signs (12 hours) Temp Pulse Resp BP BP Pulse Ox 10/12/17 08:30 99.1 F 65 16 127/68 94 L 10/12/17 03:36 98 F 64 18 157/71 H 92 L 10/12/17 00:00 66 18 126/63 10/11/17 22:45 100 Weight Weight 139 lb 3.2 oz I&O: 10/11/17 10/12/17 10/13/17 06:59 06:59 06:59 Intake Total 1200 1480 Output Total 200 Balance 1200 1280 Result Diagrams: 10/09/17 06:09 10/11/17 03:50 Radiology Reviewed by me: Yes (chest xray reviewed) EKG Reviewed by me: Yes (pacing) Phys Exam - Physical Examination Constitutional: NAD HEENT: PERRLA, moist MMs, sclera anicteric Neck: no JVD, supple Respiratory: no wheezing, no rales, no rhonchi Cardiovascular: RRR, no significant murmur, no rub pacemaker site clean Gastrointestinal: soft, non-tender, no distention, positive bowel sounds Musculoskeletal: no edema, pulses present Neurological: non-focal, normal sensation, moves all 4 limbs Psychiatric: normal affect, A&O x 3 Skin: no rash, normal turgor Dx/Plan (1) Dizziness Code(s): R42 - DIZZINESS AND GIDDINESS Status: Acute (2) Hypokalemia Code(s): E87.6 - HYPOKALEMIA Status: Acute (3) Symptomatic sinus bradycardia Code(s): R00.1 - BRADYCARDIA, UNSPECIFIED Status: Acute (4) Asthma Code(s): J45.909 - UNSPECIFIED ASTHMA, UNCOMPLICATED Status: Chronic (5) Hypertension Code(s): I10 - ESSENTIAL (PRIMARY) HYPERTENSION Status: Chronic (6) Hypothyroidism Code(s): E03.9 - HYPOTHYROIDISM, UNSPECIFIED Status: Chronic (7) S/P cardiac pacemaker procedure Status: Acute - Plan cont current plan of care * medication reviewed as below * symptomatic treatment * stable for discharge * see discharge bennett. Review of Systems - Review of Systems Eyes: negative: Pain, Vision Change, Conjunctivae Inflammation, Eyelid Inflammation, Redness, Other ENT: negative: Ear Pain, Ear Discharge, Nose Pain, Nose Discharge, Nose Congestion, Mouth Pain, Mouth Swelling, Throat Pain, Throat Swelling, Other Respiratory: negative: Cough, Dry, Shortness of Breath, Hemoptysis, SOB with Excertion, Pleuritic Pain, Sputum, Wheezing Cardiovascular: negative: chest pain, palpitations, orthopnea, paroxysmal nocturnal dyspnea, edema, light headedness, other Gastrointestinal: negative: Nausea, Vomiting, Abdominal Pain, Diarrhea, Constipation, Melena, Hematochezia, Other Genitourinary: negative: Dysuria, Frequency, Incontinence, Hematuria, Retention , Other Musculoskeletal: negative: Neck Pain, Shoulder Pain, Arm Pain, Back Pain, Hand Pain, Leg Pain, Foot Pain, Other Skin: negative: Rash, Lesions, Simon, Bruising, Other - Medications/Allergies Allergies/Adverse Reactions: Allergies Allergy/AdvReac Type Severity Reaction Status Date / Time codeine Allergy Verified 10/09/17 02:29 Medications: Current Medications Acetaminophen (Tylenol) 650 mg PO Q4H PRN PRN Reason: Headache/Fever or Pain Last Admin: 10/11/17 17:35 Dose: 650 mg Al Hydroxide/Mg Hydroxide (Maalox) 30 ml PO Q6H PRN PRN Reason: Heartburn or Indigestion Albuterol Sulfate (Ventolin) 2.5 mg NEB [id number] PRN PRN Reason: Wheezing Artificial Tears (Tears Naturale) 0 drop EA EYE PRN PRN PRN Reason: Dry Eyes Famotidine (Pepcid) 20 mg PO BID [facility] Last Admin: 10/12/17 08:42 Dose: 20 mg Guaifenesin (Robitussin Sf) 200 mg PO Q4H PRN PRN Reason: Cough Hydralazine HCl (Apresoline) 10 mg SLOW IVP Q4H PRN PRN Reason: Systolic BP > 180 Last Admin: 10/10/17 21:48 Dose: 10 mg Levothyroxine Sodium (Synthroid) 100 mcg PO 0600 [facility] Last Admin: 10/12/17 05:52 Dose: 100 mcg Loperamide HCl (Imodium) 2 mg PO PRN PRN PRN Reason: Diarrhea/Loose Stools Loratadine (Claritin) 10 mg PO DAILYPRN PRN PRN Reason: Sinus Symptoms Losartan Potassium (Cozaar) 100 mg PO DAILY [facility] Last Admin: 10/12/17 08:42 Dose: 100 mg Magnesium Hydroxide (Milk Of Magnesium) 30 ml PO DAILYPRN PRN PRN Reason: Constipation Mineral Oil/White Petrolatum (Eucerin Cream) 0 gm TOP BIDPRN PRN PRN Reason: Dry Skin Montelukast Sodium (Singulair) 10 mg PO [facility] Last Admin: 10/11/17 20:24 Dose: 10 mg Nitroglycerin (Nitrostat) 0.4 mg SL Q5MIN PRN PRN Reason: Chest Pain Ondansetron HCl (Zofran Odt) 4 mg PO Q6H PRN PRN Reason: Nausea/Vomiting Ondansetron HCl (Zofran) 4 mg IVP Q6H PRN PRN Reason: Nausea/Vomiting Last Admin: 10/11/17 19:09 Dose: 4 mg Phenol (Chloraseptic [place] 180 Ml Bot) 0 ml PO PRN PRN PRN Reason: Sore Throat Senna (Senokot) 2 tab PO HSPRN PRN PRN Reason: Constipation Sertraline HCl (Zoloft) 100 mg PO DAILY [facility] Last Admin: 10/12/17 08:42 Dose: 100 mg Sodium Chloride ([place] Nasal [place] 0.65%) 0 ml EA NARE QIDPRN PRN PRN Reason: Nasal Congestion Tramadol HCl (Ultram) 50 mg PO Q6H PRN PRN Reason: Pain Last Admin: 10/12/17 08:40 Dose: 50 mg Trazodone HCl (Desyrel) 50 mg PO QAM [facility] Last Admin: 10/12/17 08:43 Dose: 50 mg Trazodone HCl (Desyrel) 100 mg PO HS [facility] Last Admin: 10/11/17 20:24 Dose: 100 mg Zolpidem Tartrate (Ambien) 5 mg PO HSPRN PRN PRN Reason: Insomnia
--- NOTE | 2017-10-12 11:59 | ADD-DIS ---
Please see my discharge summary dictated yesterday. There is no change in discharge summary dictated yesterday. The patient is seen and examined at bedside today. Please see my progress note from lawanda lorenzo for further detail.
--- NOTE | 2017-10-12 12:28 | EKG ---
Test Reason : STAT Blood Pressure : / mmHG Vent. Rate : 060 BPM Atrial Rate : 060 BPM P-R Int : 146 ms QRS Dur : 114 ms QT Int : 394 ms P-R-T Axes : 075 -36 073 degrees QTc Int : 394 ms Atrial-paced rhythm Left axis deviation Incomplete left bundle branch block Nonspecific T wave abnormality Abnormal ECG When compared with ECG of 08-OCT-2017 23:09, (Unconfirmed) Premature atrial complexes are no longer Present Nonspecific T wave abnormality now evident in Lateral leads Confirmed by YIMI CAST, DR. Murphy ([id number]) on 10/12/2017 12:27:57 PM Referred By: MARSHALL Confirmed By:DR. Jeffrey GELLER MD
--- NOTE | 2017-10-12 13:25 | PRG ---
DATE OF SERVICE: 10/12/2017 SUBJECTIVE: Ms. Levy had what was reported as chest pain, but when I talked to her, it was real ly some pain underneath the right shoulder, really not in the chest area where it is suspicious for a ngina et al. There is no substernal pain. It was, as mentioned, just a few centimeters below the ac romioclavicular joint. She is feeling better now. She said she intermittently feels short of breath at home. She says she has asthma. She takes some medicine at home, but she does not know what it i s. Her oxygen level apparently was low earlier. OBJECTIVE: VITAL SIGNS: Her blood pressure 128/63, pulse 60. LUNGS: Clear. CARDIAC: Normal S1 and S2. ABDOMEN: Soft, nontender. EXTREMITIES: There is no edema. ASSESSMENT: 1. Status post pacemaker insertion. 2. History of asthma. PLAN: We will go ahead and order a BNP. If it is elevated, we could consider giving her a dose of L asix. Get her up walking in the gonsales. She could add some atelectasis. Oxygen saturation apparently was 92% on room air.
[2017-10-12] MEDS ORDERED: Furosemide 20 MG/2 ML VIAL SLOW IVP SCH (15:00)
[2017-10-12] MEDS ORDERED: Potassium Chloride 20 MEQ TAB PO SCH (15:00)
--- NOTE | 2017-10-12 17:00 | CCL ---
INDICATION FOR PROCEDURE: This is a 62-year-old female with symptomatic bradycardia. She was advised to undergo dual-chamber p acemaker insertion. This was performed today without difficulties or complications. The full dictated note can be found in the chart. She was implanted with two screw-in leads with active fixation to the right atrium an d the right ventricle. She was implanted with an Azur dual chamber pacemaker from [employer]. The up per rate was set at 120 and the lower rate was set at 60. There were no difficulties or complication s encountered. The patient was given IV Versed as well as IV morphine for the procedure for consciou s sedation. Throughout the procedure, she was monitored by an independent observer present for heart rate, blood pressure, O2 saturation, all remains stable.
[2017-10-12] MEDS: Montelukast Sodium 10 mg Tablet PO SCH (20:51)
[2017-10-13] MEDS: Levothyroxine Sodium 100 MCG TAB PO SCH (05:44)
[2017-10-13] MEDS ORDERED: Sodium Chloride 0.9% 10 ML ONE (07:22)
[2017-10-13] MEDS: Famotidine 20 MG TAB PO SCH (08:36)
[2017-10-13] MEDS: traZODone HCl 50 MG TAB PO SCH (08:36)
[2017-10-13] MEDS: Losartan 25 MG TAB PO SCH (08:37)
[2017-10-13] MEDS ORDERED: Furosemide 20 MG TAB PO SCH (09:00)
--- NOTE | 2017-10-13 09:36 | PRG ---
DATE OF SERVICE: 10/13/2017 HISTORY: Ms. Levy is doing well. She was short of breath yesterday, found that she had a high BNP. She received furosemide and potassium. She said she had a very good urine output following cl t, and her breathing improved. She feels well today. PHYSICAL EXAMINATION: VITAL SIGNS: Blood pressure is still high this morning slightly 142 systolic. Last night it was 168 /82, pulse 60, it is paced. LUNGS: Clear. CARDIAC: Normal S1, normal S2. ABDOMEN: Soft, nontender. EXTREMITIES: No edema. ASSESSMENT: 1. Status post pacemaker insertion for severe sinus bradycardia, pacemaker, atrial pacing, ventricul ar sensing. 2. Evidence of diastolic congestive heart failure with a BNP 302.9. 3. Hypertension. PLAN: 1. Losartan 100 mg a day. 2. Furosemide 20 mg daily. 3. Add potassium 20 mEq a day. 4. I asked her to see us in the office in a couple of weeks, do a base met first. 5. She will be also following up with Dr. Childress in the office for a pacemaker followup. 6. Stress testing did not show any evidence of ischemia.
[2017-10-13 12:33] VITALS: BP 134/75; TEMP 98.5
[2017-10-14] MEDS ORDERED: Potassium Chloride 20 MEQ TAB PO SCH (08:00)
== END 2017-10-13 12:47 | disposition home or self-care (01) | DRG 244 ==
LOC: ERS 23:05 → IMCU/EMU 10-09 00:25 → 2NO 10-09 15:17
PROVIDERS: ADMIT Hospitalist; ATTEND Hospitalist
PROC: 0JH606Z Insertion of Pacemaker, Dual Chamber into Chest Subcutaneous Tissue and Fascia, Open Approach (ICD-10-PCS; principal; 2017-10-11)
PROC: 02H63JZ Insertion of Pacemaker Lead into Right Atrium, Percutaneous Approach (ICD-10-PCS; 2017-10-11)
PROC: 02HK3JZ Insertion of Pacemaker Lead into Right Ventricle, Percutaneous Approach (ICD-10-PCS; 2017-10-11)
PROC: 4A023N6 Measurement of Cardiac Sampling and Pressure, Right Heart, Percutaneous Approach (ICD-10-PCS; 2017-10-11)
DX: R00.1 Bradycardia, unspecified (principal); J45.909 Unspecified asthma, uncomplicated; E03.9 Hypothyroidism, unspecified; F41.9 Anxiety disorder, unspecified; F32.9 Major depressive disorder, single episode, unspecified; E87.6 Hypokalemia; I16.0 Hypertensive urgency; E66.9 Obesity, unspecified; Z68.39 Body mass index [BMI] 39.0-39.9, adult; I10 Essential (primary) hypertension; Z88.5 Allergy status to narcotic agent
CPT/HCPCS: 33208; 36415; 71045; 78452; 80048; 80053; 80061; 81001; 82553; 83880; 84443; 84484; 85025; 90471; 90732; 93005; 93010; 93017; 93306; 93798; 96374; 99152; 99153; A4216; A9500; C1785; C1898; G0009; J0360; J0461; J0690; J1580; J1650; J1940; J2001; J2250; J2270; J2405; J2785; J3480

== ENCOUNTER 2020-07-12 18:08 | Observation (INO) | payer BC, OTHER, SELFPAY ==
[2020-07-12 19:35] VITALS: BMI 25.6
[2020-07-12] MEDS ORDERED: Calcium Carbonate 500 MG ChewTAB PO PRN (22:54)
[2020-07-12] MEDS ORDERED: Acetaminophen 325 MG TAB PO PRN (22:54)
[2020-07-12] MEDS ORDERED: Ondansetron ODT 4 MG TAB PO PRN (22:54)
[2020-07-12] MEDS ORDERED: Guaifenesin DM 100-10/5 ML UDCUP PO PRN (22:54)
[2020-07-12] MEDS ORDERED: Ondansetron PF 4 MG/2 ML Vial IVP PRN (22:54)
[2020-07-12] MEDS ORDERED: Senokot S 8.6-50 MG TAB PO PRN (22:54)
[2020-07-12] MEDS ORDERED: Aspirin 325 mg Enteric Coated Tablet PO SCH (23:00)
[2020-07-13 00:05] LABS: Troponin I 0.028 ng/mL (< 0.028)
[2020-07-13] MEDS ORDERED: Magnesium 2 GM/50 ML 2 GM in Premix Bag 1 BAG IVPB SCH (00:30)
[2020-07-13 02:20] LABS: SARS-CoV-2 NAA Rapid Test Not Detected (NotDetected)
[2020-07-13 02:29] LABS: Troponin I 0.017 ng/mL (< 0.028)
[2020-07-13 05:46] LABS: #Basophils 0.1 thou/uL (0.0-0.2); #Eosinphils 0.2 thou/uL (0.0-0.7); #Lymphocytes 2.7 thou/uL (1.20-3.40); #Monocytes 0.6 thou/uL (0.11-0.59); #Neutrophils 5.1 thou/uL (1.40-6.50); %Basophils 0.9 % (0.0-1.0); %Eosinophils 2.8 % (0.0-10.0); %Lymphocytes 30.9 % (21.0-51.0); %Monocytes 6.5 % (0.0-10.0); %Neutrophils 58.9 % (42.0-75.0); Hemoglobin 11.7 g/dL (12.0-16.0); Mean Corpuscular Hemoglobin 27.8 pg (27.0-31.0); Mean Corpuscular Volume 84.2 fL (78.0-98.0); Mean Platelet Volume 9.2 fL (7.4-10.4); Platelet Count 226 thou/uL (130-400); RBC Distribution Width 12.9 % (11.5-14.5); Red Blood Cell (RBC) Count 4.21 mill/uL (4.20-5.40); White Blood Cell (WBC) Count 8.6 thou/uL (4.8-10.8)
[2020-07-13 05:57] LABS: Anion Gap 13 mmol/L (10-20); BUN (Urea Nitrogen) 20 mg/dL (9.8-20.1); Calc. Creatinine Clearance 37 mL/min (70-130); Calcium 8.4 mg/dL (7.8-10.44); Carbon Dioxide 23 mmol/L (23-31); Cardiac Risk 3.8 (Less than 4.5); Chloride 108 mmol/L (98-107); Cholesterol 192 mg/dl (< 200 Desired); Glucose 98 mg/dL (80-115); HDL Cholesterol 51 mg/dL (>60 Neg Risk); LDL Cholesterol, Calculated 122 mg/dL; Potassium 3.8 mmol/L (3.5-5.1); Sodium 140 mmol/L (136-145); Triglycerides 97 mg/dL (Less than 150)
[2020-07-13] MEDS ORDERED: Sodium Chloride 0.9% 1,000 ML IV SCH (07:00)
[2020-07-13] MEDS: Mometasone 200 MCG/Formoterol 5 MCG 120 PUFF INHALER INH SCH ×2 (07:21→19:17)
[2020-07-13] MEDS: Levothyroxine Sodium 100 MCG TAB PO SCH (08:01)
[2020-07-13] MEDS: Potassium Chloride 20 MEQ TAB PO SCH (08:02)
[2020-07-13] MEDS ORDERED: traZODone HCl 50 MG TAB PO SCH ×2 (09:00→21:00)
[2020-07-13] MEDS ORDERED: Losartan 25 MG TAB PO SCH (09:00)
[2020-07-13] MEDS: Metoprolol Tartrate 25 MG TAB PO SCH (21:14)
[2020-07-14] MEDS ORDERED: Sodium Chloride 0.9% 500 ML IV SCH (07:15)
[2020-07-14] MEDS: Mometasone 200 MCG/Formoterol 5 MCG 120 PUFF INHALER INH SCH (08:00)
[2020-07-14] MEDS: Levothyroxine Sodium 100 MCG TAB PO SCH (08:43)
[2020-07-14] MEDS: Metoprolol Tartrate 25 MG TAB PO SCH (08:43)
[2020-07-14] MEDS: Potassium Chloride 20 MEQ TAB PO SCH (08:44)
[2020-07-14] MEDS ORDERED: Lidocaine 5% Patch TD SCH (09:00)
[2020-07-14] MEDS ORDERED: Losartan 25 MG TAB PO SCH (09:00)
[2020-07-14 12:02] VITALS: BP 151/72; TEMP 98.2
[2020-07-14] MEDS ORDERED: Digoxin 0.25 MG TAB PO SCH (12:45)
[2020-07-14] MEDS ORDERED: Transdermal Patch Removal TOP SCH (21:00)
[2020-07-15] MEDS ORDERED: Digoxin 0.125 MG TAB PO SCH (09:00)
== END 2020-07-14 17:06 | disposition home or self-care (01) ==
LOC: 2SW 19:14
PROVIDERS: ADMIT Internal Medicine; ATTEND Internal Medicine
DX: I95.1 Orthostatic hypotension (principal); I11.0 Hypertensive heart disease with heart failure; I50.32 Chronic diastolic (congestive) heart failure; J45.909 Unspecified asthma, uncomplicated; E03.9 Hypothyroidism, unspecified; E78.5 Hyperlipidemia, unspecified; I47.1 Supraventricular tachycardia; R20.0 Anesthesia of skin; R20.2 Paresthesia of skin; K21.9 Gastro-esophageal reflux disease without esophagitis; I49.5 Sick sinus syndrome; R00.1 Bradycardia, unspecified; Z79.899 Other long term (current) drug therapy; Z88.5 Allergy status to narcotic agent; Z95.0 Presence of cardiac pacemaker; Z20.822 Contact with and (suspected) exposure to COVID-19
CPT/HCPCS: 0240U; 36415; 70450; 72170; 80048; 80061; 83735; 84439; 84443; 84484; 85025; 87635; 93306; 93880; 94760; 96374; G0378; J3475; U0003; U0005